=== PATIENT | female | born 1975 | race Caucasian/White ===

== ENCOUNTER 2025-09-13 08:02 | Day surgery (SDC) | payer MEDICAID ==
[~2025-09-13 08:02] MED LIST: Sodium Chloride 0.9% 10 ML Syringe FLUSH PRN
[2025-09-13] MEDS: Lactated Ringers 1,000 ML IV SCH (08:25)
[2025-09-13] MEDS ORDERED: Midazolam 1 MG/ML 2 ML SDV ONE (08:44)
[2025-09-13] MEDS ORDERED: Propofol 200 MG/20 ML SDV ONE (08:44)
== END 2025-09-13 10:45 | disposition home or self-care (01) ==
LOC: KA.SDS 08:02
PROVIDERS: ATTEND Surgery
DX: K22.2 Esophageal obstruction (principal); N76.0 Acute vaginitis; Z79.899 Other long term (current) drug therapy; Z79.890 Hormone replacement therapy
CPT/HCPCS: 81025; J1596; J2250; J2704; J7120